=== PATIENT | male | born 1990 | race Two or more races ===

== ENCOUNTER 2025-05-13 18:06 | Emergency (ER) | payer SELFPAY ==
[2025-05-13 18:29] LABS: BASOPHILS ABSOLUTE AUTO 0.02 K/uL (0.00-0.20); BASOPHILS PERCENT AUTO 0.2 % (0.0-1.0); EOSINOPHILS ABSOLUTE AUTO 0.12 K/uL (0.00-0.45); EOSINOPHILS PERCENT AUTO 1.4 % (0.0-6.0); IMMATURE GRAN ABSOLUTE AUTO 0.01 K/uL (0.00-0.05); IMMATURE GRAN PERCENT AUTO 0.1 % (0.0-0.4); LYMPHOCYTES ABSOLUTE AUTO 3.13 K/uL (1.00-4.80); LYMPHOCYTES PERCENT AUTO 37.0 % (24.0-44.0); MEAN PLATELET VOLUME 9.1 fL (9.4-12.4); MONOCYTES ABSOLUTE AUTO 0.68 K/uL (0.00-0.80); MONOCYTES PERCENT AUTO 8.0 % (0.0-8.0); NEUTROPHILS ABSOLUTE AUTO 4.51 K/uL (1.80-7.70); NEUTROPHILS PERCENT AUTO 53.3 % (41.0-71.0); NRBC ABSOLUTE 0.00 K/uL (0.00-0.02); NRBC PERCENT 0.0 /100WBC (0.0-0.2); PLATELET COUNT,PLT 242 K/uL (150-400); RED BLOOD CELL COUNT 4.87 M/uL (4.52-5.90); WHITE BLOOD CELL COUNT,WBC 8.47 K/uL (3.9-11.3)
[2025-05-13] MEDS: Labetalol 100 MG/20 ML MDV IVPUSH ONE ×2 (18:31→19:25)
[2025-05-13 18:53] LABS: A/G RATIO 0.9 (0.9-1.6); ALANINE AMINOTRANSFERASE,ALT 25.0 IU/L (14-63); BILIRUBIN TOTAL 0.3 mg/dL (0.2-1.0); BLOOD UREA NITROGEN,BUN 14.0 mg/dL (7.0-18.0); CARBON DIOXIDE,CO2 24.2 mmol/L (21.0-32.0); CHLORIDE,CL 104.0 mmol/L (98-107); CREATININE 1.0 mg/dL (0.8-1.3); EST CRCL DRUG DOSING (CG) 106.46 mL/min; GLUCOSE RANDOM 105.0 mg/dL (74-106); POTASSIUM,K 4.0 mmol/L (3.5-5.1); PROTEIN TOTAL,TP 7.5 g/dL (6.4-8.2); SODIUM,NA 140.0 mmol/L (136-148)
[2025-05-13 19:08] LABS: ESTIMATED GFR 101.0 mL/min (>60)
[2025-05-13 19:57] LABS: ASPARTATE AMNIOTRANSFERASE,AST 22.0 IU/L (15-37)
[2025-05-13] MEDS ORDERED: hydrALAZINE 20 MG/ML SDV IV PRN (20:41)
[2025-05-13] MEDS: hydrALAZINE 20 MG/ML SDV IV STA (20:54)
[2025-05-13] MEDS: hydrALAZINE 20 MG/ML SDV IVPUSH ONE (21:45)
== END 2025-05-13 21:45 | disposition home or self-care (01) ==
LOC: MW.ED 18:06
DX: I10 Essential (primary) hypertension (principal); Z79.899 Other long term (current) drug therapy; Z76.0 Encounter for issue of repeat prescription
CPT/HCPCS: 36415; 71045; 80053; 83690; 84484; 85025; 93005; 96374; 96375; 96376; 99285; J0360; J1920; 93010; 99284